=== PATIENT | male | born 1990 | race Caucasian/White ===

== ENCOUNTER 2019-03-16 09:48 | Inpatient (IN) | payer OTHER ==
[2019-03-16 10:21] VITALS: BMI 23.3
--- NOTE | 2019-03-16 12:03 | HP ---
COWS - Scale Resting Pulse: 1= [place] 81-100 Sweatin= Chills/Flushing Restless Observation: 1= Difficult to Sit Still Pupil Size: 0= Normal to Room Light Bone or Joint Aches: 1= Mild Discomfort Runny Nose/ Eye Tearin= Runny Nose/Eyes GI Upset > 30mins: 2= Nausea/Diarrhea Tremor Observation: 2= Slight Tremor Visible Yawning Observation: 0= None Anxiety or Irritability: 2=Irritable/Anxious Goose Flesh Skin: 0=Smooth Skin COWS Score: 12 CIWA Score - Admission Criteria OASAS Guidelines: Admission for Medically Managed Detox: Requires at least one of the followin. CIWA greater than 12 2. Seizures within the past 24 hours 3. Delirium tremens within the past 24 hours 4. Hallucinations within the past 24 hours 5. Acute intervention needed for co occurring medical disorder 6. Acute intervention needed for co occurring psychiatric disorder 7. Severe withdrawal that cannot be handled at a lower level of care (continued vomiting, continued diarrhea, abnormal vital signs) requiring intravenous medication and/or fluids 8. Admission ROS [facility] Chief Complaint: Detox for Heroin Allergies/Adverse Reactions: Allergies Allergy/AdvReac Type Severity Reaction Status Date / Time No Known Allergies Allergy Verified 03/16/19 10:16 History of Present Illness: 28 year old male with a past medical history of renal stones (last 3 years ago) presents for detox from heroin use. Has never been to detox in the past. Has outpatient rehab set up already [facility] in the [place]. Only associated symptom is tarry/red stool with blood clots happens once every other month, was supposed to see a GI but has not yet. No family history of colon CA. No pain with bowel movements. Heroin: 5 bags/day, last used this morning, snorts - never injected; never had a seizure. 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 Loss EENT: reports: Nose Congestion Respiratory: reports: Productive cough (White phlegm) Cardiac: reports: Lightheadedness, Palpitations GI: reports: Nausea, Tarry Stools : reports: No Symptoms Reported Musculoskeletal: reports: Back Pain Integumentary: reports: Rash Neuro: reports: Dizziness Psychiatric: reports: Judgement Intact, Mood/Affect Appropiate, Orientated x3, Depressed Patient History - Smoking Cessation Smoking history: Current every day smoker Have you smoked in the past 12 months: Yes Aproximately how many cigarettes per day: 20 Initiated information on smoking cessation: Yes 'Breaking Loose' booklet given: 03/16/19 - Substances abused Heroin Substance route: Inhalation Frequency: Daily Amount used: 5bags Age of first use: 27 Date of last use: 03/16/19 Admission Physical Exam [facility] - Vital Signs Vital Signs: Vital Signs - 24 hr 03/16/19 03/16/19 10:16 10:31 Temperature 97.1 F L 97.1 F L Pulse Rate 86 86 Respiratory 18 18 Rate Blood Pressure 120/83 120/83 Cleared for Admission [facility] - Detox or Rehab [facility] Level of Care: Medically Supervised Detox Regimen/Protocol: Methadone Claeared for Rehab Admission: No Breathalyzer - Breathalyzer Breathalyzer: 0 Urine Drug Screen - Test Device Lot number: [id number] Expiration date: 11/11/20 - Control Is test valid?: Yes - Results Drug screen NEGATIVE: No Urine drug screen results: THC-Marijuana, FEN-Fentanyl, MOP-Opiates, OXY- Oxycodone Inpatient Rehab Admission - Rehab Decision to Admit Inpatient rehab admission?: No
[2019-03-16] MEDS ORDERED: MAG HYDROX/AL HYDROX/SIMETH 30 ML UNIT-DOSE CUP PO PRN (12:14)
[2019-03-16] MEDS ORDERED: MAGNESIUM CITRATE 300 ML BOTTLE PO PRN (12:14)
[2019-03-16] MEDS ORDERED: MAGNESIUM HYDROX 2400MG/30ML ORAL SUSPENSION 30 ML CUP PO PRN (12:14)
[2019-03-16] MEDS ORDERED: MENTHOL/PHENOL 1 EACH UD MM PRN (12:14)
[2019-03-16] MEDS ORDERED: BISMUTH SUBSALICYLATE 262 MG/15 ML BTL PO PRN (12:14)
[2019-03-16] MEDS ORDERED: ACETAMINOPHEN 325 MG TABLET (FP) PO PRN ×2 (12:14)
[2019-03-16] MEDS ORDERED: METHADONE HCL 10 MG TABLET (FOR DETOX USE ONLY) PO ONE (13:00)
--- NOTE | 2019-03-16 13:17 | PN ---
Teaching Attending Note Name of Resident: Jose Kern ATTENDING PHYSICIAN STATEMENT I saw and evaluated the patient. I reviewed the resident's note and discussed the case with the resident. I agree with the resident's findings and plan as documented. SUBJECTIVE: 28 y.o. male here for opiate use , reports 4-5 bags via inhalation , denies ivdu , denies prior detox , current symptoms as above pmhx : denies denies legal issues OBJECTIVE: wnwd Vital Signs - 24 hr 03/16/19 03/16/19 10:16 10:31 Temperature 97.1 F L 97.1 F L Pulse Rate 86 86 Respiratory 18 18 Rate Blood Pressure 120/83 120/83 ASSESSMENT AND PLAN: Opioid dependence - Methadone protocol.
[2019-03-16] MEDS: NICOTINE 21 MG/24 HOURS TOPICAL PATCH TD SCH (13:33)
[2019-03-16] MEDS: NICOTINE POLACRILEX 2 MG GUM BUC PRN ×2 (14:51→21:46)
[2019-03-16] MEDS: hydrOXYzine PAMOATE 25 MG CAPSULE (FP) PO PRN ×2 (14:55→23:59)
[2019-03-16] MEDS: IBUPROFEN 400 MG TABLET (FP) PO PRN (14:58)
[2019-03-16] MEDS: cloNIDine HCL 0.1 MG TABLET PO PRN (16:15)
--- NOTE | 2019-03-16 19:53 | PN ---
[facility] Progress Note Note: Vital Signs Temperature 97.7 F 03/16/19 18:05 Pulse Rate 84 03/16/19 18:05 Respiratory Rate 18 03/16/19 18:05 Blood Pressure 144/90 03/16/19 18:05 O2 Sat by Pulse Oximetry (%) c/o of withdrawal sx, patient reported to RN on duty he also uses alcohol, 2 x six pack per day. valium PRN added to regimen increase fluids continue to monitor
[2019-03-16] MEDS: THIAMINE HCL 100 MG TABLET (FP) PO SCH (21:13)
[2019-03-16] MEDS: MELATONIN 5 MG TABLETS PO PRN (21:13)
[2019-03-16] MEDS: diazePAM 5 MG TABLET PO PRN (21:13)
[2019-03-16] MEDS: METHOCARBAMOL 500 MG TABLET PO PRN (23:59)
[2019-03-17] MEDS: cloNIDine HCL 0.1 MG TABLET PO PRN ×2 (00:38→17:00)
[2019-03-17] MEDS: diazePAM 5 MG TABLET PO PRN ×4 (01:32→16:58)
[2019-03-17] MEDS: NICOTINE POLACRILEX 2 MG GUM BUC PRN ×3 (06:27→19:13)
[2019-03-17] MEDS: METHOCARBAMOL 500 MG TABLET PO PRN (06:27)
[2019-03-17] MEDS ORDERED: METHADONE HCL 10 MG TABLET (FOR DETOX USE ONLY) PO ONE (09:12)
[2019-03-17] MEDS ORDERED: P-EPHED 60MG/TRIPROLIDI 2.5MG TABLET PO PRN (09:16)
[2019-03-17] MEDS ORDERED: METHADONE HCL 5 MG TABLET (FOR DETOX USE ONLY) ONE (09:24)
[2019-03-17] MEDS ORDERED: METHADONE HCL 10 MG TABLET (FOR DETOX USE ONLY) ONE (09:24)
[2019-03-17] MEDS: PRENATAL VITAMINS W/ FOLIC ACID TABLET (FP) PO SCH (09:25)
[2019-03-17] MEDS: NICOTINE 21 MG/24 HOURS TOPICAL PATCH TD SCH (09:26)
[2019-03-17] MEDS ORDERED: METHADONE (DETOX) 20 MG, METHADONE (DETOX) 5 MG PO ONE (09:30)
--- NOTE | 2019-03-17 09:47 | PN ---
[facility] COWS - Scale Resting Pulse: 0= [place] 80 or Below Sweatin= Chills/Flushing Restless Observation: 1= Difficult to Sit Still Pupil Size: 0= Normal to Room Light Bone or Joint Aches: 1= Mild Discomfort Runny Nose/ Eye Tearin= Runny Nose/Eyes GI Upset > 30mins: 2= Nausea/Diarrhea Tremor Observation of Outstretched Hands: 2= Slight Tremor Visible Yawning Observation: 2= >3x During Session Anxiety or Irritability: 2=Irritable/Anxious Goose Flesh Skin: 0=Smooth Skin COWS Score: 13 BHS Progress Note (SOAP) Subjective: shakes sweats irritable body aches interrupted sleep bones hurt insomnia I used upto a bundle or two a day. I am sick Objective: 03/17/19 10:12 Vital Signs Temperature 97.5 F L 03/17/19 07:36 Pulse Rate 61 03/17/19 07:36 Respiratory Rate 18 03/17/19 07:36 Blood Pressure 150/82 03/17/19 07:36 O2 Sat by Pulse Oximetry (%) labs pending aaox3 ambulating no acute distress Assessment: 03/17/19 10:14 withdrawals noted Plan: pt was placed on a severe methadone detox regimen pt was advised of all the ancillary medication ordered increase fluids
[2019-03-17] MEDS ORDERED: METHADONE HCL 5 MG TABLET (FOR DETOX USE ONLY) PO ONE (10:00)
[2019-03-17 10:39] LABS: HEMATOCRIT 44.9 % (35.4-49); HEMOGLOBIN 15.6 GM/dL (11.7-16.9); MCH 30.5 pg (25.7-33.7); MCHC 34.7 g/dl (32.0-35.9); MEAN CELL VOLUME 87.8 fl (80-96); MEAN PLT VOLUME 8.4 fl (7.5-11.1); PLATELET COUNT 303 K/MM3 (134-434); RBC 5.12 M/mm3 (4.00-5.60); RDW 13.2 % (11.9-15.9); WHITE BLOOD COUNT 9.2 K/mm3 (4.0-10.0)
[2019-03-17 10:44] LABS: ALBUMIN 4.6 g/dl (3.4-5.0); BILIRUBIN,TOTAL 0.6 mg/dL (0.2-1); BLOOD UREA NITROGEN 7.8 mg/dL (7-18); CALCIUM 9.6 mg/dL (8.5-10.1)
[2019-03-17] MEDS: PANTOPRAZOLE 40 MG TABLET (FP) PO SCH (11:55)
[2019-03-17] MEDS ORDERED: FLU VACCINE QUAD 60 MCG/0.5 ML (MDV 19-20) IM ONE (12:00)
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
[2019-03-17] MEDS: hydrOXYzine PAMOATE 50 MG CAPSULE (FP) PO PRN (19:13)
[2019-03-17] MEDS: MIRTAZAPINE 15 MG TABLET (FP) PO SCH (22:17)
[2019-03-17] MEDS: THIAMINE HCL 100 MG TABLET (FP) PO SCH (22:17)
[2019-03-18] MEDS: diazePAM 5 MG TABLET PO PRN ×4 (05:43→22:21)
[2019-03-18] MEDS ORDERED: METHADONE HCL 5 MG TABLET (FOR DETOX USE ONLY) ONE (09:04)
[2019-03-18] MEDS ORDERED: METHADONE HCL 10 MG TABLET (FOR DETOX USE ONLY) ONE (09:04)
[2019-03-18] MEDS ORDERED: METHADONE HCL 10 MG TABLET (FOR DETOX USE ONLY) PO ONE (10:00)
[2019-03-18] MEDS ORDERED: METHADONE (DETOX) 20 MG, METHADONE (DETOX) 5 MG PO ONE (10:00)
[2019-03-18] MEDS: PRENATAL VITAMINS W/ FOLIC ACID TABLET (FP) PO SCH (10:10)
[2019-03-18] MEDS: PANTOPRAZOLE 40 MG TABLET (FP) PO SCH (10:10)
[2019-03-18] MEDS: NICOTINE 21 MG/24 HOURS TOPICAL PATCH TD SCH (10:11)
[2019-03-18] MEDS: IBUPROFEN 400 MG TABLET (FP) PO PRN (12:11)
[2019-03-18] MEDS: hydrOXYzine PAMOATE 50 MG CAPSULE (FP) PO PRN ×2 (12:12→19:18)
[2019-03-18] MEDS: METHOCARBAMOL 500 MG TABLET PO PRN (13:26)
--- NOTE | 2019-03-18 13:27 | PN ---
[facility] COWS - Scale Resting Pulse: 1= [place] 81-100 Sweatin= Chills/Flushing Restless Observation: 1= Difficult to Sit Still Pupil Size: 0= Normal to Room Light Bone or Joint Aches: 1= Mild Discomfort Runny Nose/ Eye Tearin= None GI Upset > 30mins: 0= None Tremor Observation of Outstretched Hands: 0= None Yawning Observation: 2= >3x During Session Anxiety or Irritability: 2=Irritable/Anxious Goose Flesh Skin: 0=Smooth Skin COWS Score: 8 BHS Progress Note (SOAP) Subjective: c/o anxiety, irritability, interrupted sleep, and sweats. Objective: 03/18/19 13:26 Vital Signs 03/18/19 03/18/19 06:00 09:46 Temperature 97.7 F 96.4 F L Pulse Rate 85 82 Respiratory 18 18 Rate Blood Pressure 124/94 135/71 Lab Results WBC 9.2 K/mm3 (4.0-10.0) 03/17/19 08:00 RBC 5.12 M/mm3 (4.00-5.60) 03/17/19 08:00 Hgb 15.6 GM/dL (11.7-16.9) 03/17/19 08:00 Hct 44.9 % (35.4-49) 03/17/19 08:00 MCV 87.8 fl (80-96) 03/17/19 08:00 MCHC 34.7 g/dl (32.0-35.9) 03/17/19 08:00 RDW 13.2 % (11.9-15.9) 03/17/19 08:00 Plt Count 303 K/MM3 (134-434) 03/17/19 08:00 Sodium 140 mmol/L (136-145) 03/17/19 08:00 Potassium 4.0 mmol/L (3.5-5.1) 03/17/19 08:00 Chloride 103 mmol/L (98-107) 03/17/19 08:00 Carbon Dioxide 29 mmol/L (21-32) 03/17/19 08:00 Anion Gap 8 MMOL/L (8-16) 03/17/19 08:00 BUN 7.8 mg/dL (7-18) 03/17/19 08:00 Creatinine 1.0 mg/dL (0.55-1.3) 03/17/19 08:00 Random Glucose 86 mg/dL (74-106) 03/17/19 08:00 Calcium 9.6 mg/dL (8.5-10.1) 03/17/19 08:00 Labs noted. Assessment: 03/18/19 13:26 AOX3, in no acute respiratory distress. Full ROM, ambulating in the unit. Withdrawal symptoms. Plan: continue detox.
[2019-03-18] MEDS: NICOTINE POLACRILEX 2 MG GUM BUC PRN (19:18)
[2019-03-18] MEDS ORDERED: BENZOCAINE 20 % GEL TUBE MM PRN (20:19)
[2019-03-18] MEDS: MIRTAZAPINE 15 MG TABLET (FP) PO SCH (22:19)
[2019-03-18] MEDS: THIAMINE HCL 100 MG TABLET (FP) PO SCH (22:19)
[2019-03-18] MEDS: MELATONIN 5 MG TABLETS PO PRN (22:20)
[2019-03-19] MEDS ORDERED: METHADONE HCL 5 MG TABLET (FOR DETOX USE ONLY) PO ONE (06:00)
[2019-03-19] MEDS ORDERED: METHADONE HCL 10 MG TABLET (FOR DETOX USE ONLY) PO ONE (10:00)
[2019-03-19] MEDS: NICOTINE 21 MG/24 HOURS TOPICAL PATCH TD SCH (10:07)
[2019-03-19] MEDS: PRENATAL VITAMINS W/ FOLIC ACID TABLET (FP) PO SCH (10:07)
[2019-03-19] MEDS: PANTOPRAZOLE 40 MG TABLET (FP) PO SCH (10:07)
[2019-03-19] MEDS: METHOCARBAMOL 500 MG TABLET PO PRN ×2 (10:10→22:04)
[2019-03-19] MEDS: diazePAM 5 MG TABLET PO PRN ×2 (10:10→15:42)
--- NOTE | 2019-03-19 12:10 | PN ---
[facility] Progress Note Note: Patient is scheduled for discharge tomorrow. Script for 30 dasys supply of Remeron 7.5 mg/hs will be electronically transmitted to [facility] at [address] [place] [id number]
--- NOTE | 2019-03-19 16:45 | PN ---
[facility] COWS - Scale Resting Pulse: 0= [place] 80 or Below Sweatin= No chills or Flushing Restless Observation: 3= Extraneous Movement Pupil Size: 0= Normal to Room Light Bone or Joint Aches: 0= None Runny Nose/ Eye Tearin= Nasal Congestion GI Upset > 30mins: 0= None Tremor Observation of Outstretched Hands: 1= Tremor [place], Not Seen Yawning Observation: 0= None Anxiety or Irritability: 2=Irritable/Anxious Goose Flesh Skin: 0=Smooth Skin COWS Score: 7 S Progress Note (SOAP) Subjective: tooth abscess Objective: 03/19/19 16:43 a & O x 3 not in distress ambulating steadily on unit Assessment: 03/19/19 16:43 withdrawal sx Plan: continue detox Motrin/oral gel for tooth ache/abscess referred to dentist upon discharge tomorrow for d/c in a.m
[2019-03-19] MEDS: hydrOXYzine PAMOATE 50 MG CAPSULE (FP) PO PRN (17:53)
[2019-03-19] MEDS: IBUPROFEN 400 MG TABLET (FP) PO PRN (17:53)
[2019-03-19] MEDS: THIAMINE HCL 100 MG TABLET (FP) PO SCH (22:03)
[2019-03-19] MEDS: MIRTAZAPINE 15 MG TABLET (FP) PO SCH (22:03)
[2019-03-19] MEDS: MELATONIN 5 MG TABLETS PO PRN (22:06)
[2019-03-19] MEDS: NICOTINE POLACRILEX 2 MG GUM BUC PRN (22:06)
[2019-03-20] MEDS: IBUPROFEN 400 MG TABLET (FP) PO PRN (06:11)
[2019-03-20] MEDS: METHOCARBAMOL 500 MG TABLET PO PRN (06:12)
[2019-03-20] MEDS: hydrOXYzine PAMOATE 25 MG CAPSULE (FP) PO PRN (06:12)
[2019-03-20] MEDS ORDERED: METHADONE HCL 10 MG TABLET (FOR DETOX USE ONLY) PO ONE (09:00)
[2019-03-20 09:11] VITALS: BP 154/82; PULSE 93; TEMP 97.5
--- NOTE | 2019-03-20 09:17 | DS ---
[facility] Detox Discharge Summary Admission Date: 03/16/19 Discharge Date: 03/20/19 - History Present History: Cannabis Dependence, Opioid Dependence - Physical Exam Results Vital Signs: Vital Signs Temperature 97.5 F L 03/20/19 09:11 Pulse Rate 93 H 03/20/19 09:11 Respiratory Rate 18 03/20/19 09:11 Blood Pressure 154/82 03/20/19 09:11 O2 Sat by Pulse Oximetry (%) Pertinent Admission Physical Exam Findings: pt arrived in withdrawals Laboratory Tests 03/17/19 03/17/19 03/17/19 08:00 08:00 08:00 WBC 9.2 RBC 5.12 Hgb 15.6 Hct 44.9 MCV 87.8 MCH 30.5 MCHC 34.7 RDW 13.2 Plt Count 303 MPV 8.4 Sodium 140 Potassium 4.0 Chloride 103 Carbon Dioxide 29 Anion Gap 8 BUN 7.8 Creatinine 1.0 Est GFR (CKD-EPI)AfAm 117.36 Est GFR (CKD-EPI)NonAf 101.26 Random Glucose 86 Calcium 9.6 Total Bilirubin 0.6 AST 14 L ALT 28 Alkaline Phosphatase 78 Total Protein 8.0 Albumin 4.6 RPR Titer Nonreactive today pt is aaox3 ambulating no acute distress no s/s of withdrawals - Treatment Hospital Course: Detox Protocol Followed, Detoxed Safely, Responded well, Discharged Condition Good, Rehab Referral Accepted Patient has Accepted a Rehab Referral to: pt declined rehab; referral provided - Medication Discharge Medications: Ambulatory Orders Mirtazapine [Remeron -] 7.5 mg PO HS #14 tablet 03/19/19 - Diagnosis (1) Cannabis dependence Current Visit: Yes Status: Chronic (2) Opiate dependence Current Visit: Yes Status: Acute Qualifiers: Substance use status: uncomplicated Qualified Code(s): F11.20 - Opioid dependence, uncomplicated (3) Substance induced mood disorder Current Visit: Yes Status: Acute (4) Substance-induced sleep disorder Current Visit: Yes Status: Acute - AMA Did Patient Leave Against Medical Advice: No
[2019-03-20] MEDS: PRENATAL VITAMINS W/ FOLIC ACID TABLET (FP) PO SCH (09:22)
[2019-03-20] MEDS: PANTOPRAZOLE 40 MG TABLET (FP) PO SCH (09:24)
[2019-03-20] MEDS: NICOTINE 21 MG/24 HOURS TOPICAL PATCH TD SCH (09:24)
[2019-03-20] MEDS ORDERED: METHADONE (DETOX) 10 MG, METHADONE (DETOX) 5 MG PO ONE (10:00)
[2019-03-21] MEDS ORDERED: METHADONE HCL 10 MG TABLET (FOR DETOX USE ONLY) PO ONE (10:00)
[2019-03-22] MEDS ORDERED: METHADONE HCL 5 MG TABLET (FOR DETOX USE ONLY) PO ONE (06:00)
== END 2019-03-20 09:30 | disposition home or self-care (01) | DRG 775 ==
LOC: YASAS 09:48 → Y6N 12:30
PROVIDERS: ADMIT Surgery; ATTEND Surgery
PROC: HZ2ZZZZ Detoxification Services for Substance Abuse Treatment (ICD-10-PCS; principal; 2019-03-16)
DX: F10.230 Alcohol dependence with withdrawal, uncomplicated (principal); F12.20 Cannabis dependence, uncomplicated; F17.210 Nicotine dependence, cigarettes, uncomplicated; F19.24 Other psychoactive substance dependence with psychoactive substance-induced mood disorder; F19.282 Other psychoactive substance dependence with psychoactive substance-induced sleep disorder; K04.7 Periapical abscess without sinus; Z62.810 Personal history of physical and sexual abuse in childhood; Z87.442 Personal history of urinary calculi
CPT/HCPCS: 36415; 80053; 85027; 86593; J0735; Q2036

== ENCOUNTER 2019-03-31 13:00 | Inpatient (IN) | payer OTHER ==
[2019-03-31 14:22] VITALS: BMI 24.3
[2019-03-31] MEDS ORDERED: MAG HYDROX/AL HYDROX/SIMETH 30 ML UNIT-DOSE CUP PO PRN (15:19)
[2019-03-31] MEDS ORDERED: MELATONIN 5 MG TABLETS PO PRN (15:19)
[2019-03-31] MEDS ORDERED: ACETAMINOPHEN 325 MG TABLET (FP) PO PRN ×2 (15:19)
[2019-03-31] MEDS ORDERED: BISMUTH SUBSALICYLATE 524 MG/30 ML UD PO PRN (15:19)
[2019-03-31] MEDS ORDERED: hydrOXYzine PAMOATE 25 MG CAPSULE (FP) PO PRN (15:19)
[2019-03-31] MEDS ORDERED: MENTHOL/PHENOL 1 EACH UD MM PRN (15:19)
[2019-03-31] MEDS ORDERED: MAGNESIUM CITRATE 300 ML BOTTLE PO PRN (15:19)
[2019-03-31] MEDS ORDERED: MAGNESIUM HYDROX 2400MG/30ML ORAL SUSPENSION 30 ML CUP PO PRN (15:19)
[2019-03-31] MEDS ORDERED: ONDANSETRON *ODT* 4 MG TABLET SL PRN (15:19)
[2019-03-31] MEDS ORDERED: NALOXONE HCL 0.4 MG/ML VIAL IM PRN (15:21)
[2019-03-31] MEDS ORDERED: METHADONE HCL 10 MG TABLET (FOR DETOX USE ONLY) PO ONE (15:21)
[2019-03-31] MEDS ORDERED: chlordiazePOXIDE HCL 10 MG CAPSULE PO PRN (15:21)
[2019-03-31] MEDS ORDERED: chlordiazePOXIDE HCL 25 MG CAPSULE PO ONE (15:21)
[2019-03-31] MEDS ORDERED: NICOTINE POLACRILEX 2 MG GUM BUC PRN (15:23)
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
[2019-03-31] MEDS: THIAMINE HCL 100 MG TABLET (FP) PO SCH (21:11)
[2019-03-31] MEDS: chlordiazePOXIDE HCL 25 MG CAPSULE PO SCH (21:11)
[2019-03-31] MEDS: MIRTAZAPINE 15 MG TABLET (FP) PO SCH (21:11)
--- NOTE | 2019-03-31 22:18 | EKG ---
Test Reason : Blood Pressure : / mmHG Vent. Rate : 085 BPM Atrial Rate : 085 BPM P-R Int : 142 ms QRS Dur : 090 ms QT Int : 362 ms P-R-T Axes : 083 068 049 degrees QTc Int : 430 ms NORMAL SINUS RHYTHM NORMAL ECG NO PREVIOUS ECGS AVAILABLE Confirmed by MD SHERLEY, SANDRA ([id number]) on 03/31/2019 10:18:18 PM Referred By: Confirmed By:SANDRA LEPE MD
[2019-04-01] MEDS: chlordiazePOXIDE HCL 25 MG CAPSULE PO SCH ×3 (05:39→22:15)
[2019-04-01] MEDS ORDERED: METHADONE HCL 5 MG TABLET (FOR DETOX USE ONLY) PO ONE (10:00)
[2019-04-01] MEDS: hydrOXYzine PAMOATE 25 MG CAPSULE (FP) PO PRN ×2 (10:05→16:51)
[2019-04-01] MEDS: PRENATAL VITAMINS W/ FOLIC ACID TABLET (FP) PO SCH (10:09)
[2019-04-01 10:15] LABS: ALBUMIN 4.1 g/dl (3.4-5.0); BILIRUBIN,TOTAL 0.7 mg/dL (0.2-1); BLOOD UREA NITROGEN 10.1 mg/dL (7-18); CALCIUM 9.4 mg/dL (8.5-10.1); POTASSIUM 4.4 mmol/L (3.5-5.1); TOT PROT 7.5 g/dl (6.4-8.2)
[2019-04-01 10:37] LABS: HEMATOCRIT 42.4 % (35.4-49); HEMOGLOBIN 14.5 GM/dL (11.7-16.9); MCH 30.3 pg (25.7-33.7); MCHC 34.1 g/dl (32.0-35.9); MEAN CELL VOLUME 88.6 fl (80-96); MEAN PLT VOLUME 8.1 fl (7.5-11.1); PLATELET COUNT 296 K/MM3 (134-434); RBC 4.78 M/mm3 (4.00-5.60); RDW 13.4 % (11.9-15.9); WHITE BLOOD COUNT 9.1 K/mm3 (4.0-10.0)
[2019-04-01] MEDS: NICOTINE 21 MG/24 HOURS TOPICAL PATCH TD SCH (10:40)
--- NOTE | 2019-04-01 12:23 | PN ---
[facility] CIWA - CIWA Score Nausea/Vomitin-No Nausea/No Vomiting Muscle Tremors: None Anxiety: 3 Agitation: 2 Paroxysmal Sweats: 3 Orientation: 0-Oriented Tacttile Disturbances: 0-None Auditory Disturbances: 0-None Visual Disturbances: 0-None Headache: 2-Mild CIWA-Ar Total Score: 10 S COWS - Scale Resting Pulse: 0= [place] 80 or Below Sweatin= Beads of Sweat on Face Restless Observation: 1= Difficult to Sit Still Pupil Size: 0= Normal to Room Light Bone or Joint Aches: 2= Severe Diffuse Aches Runny Nose/ Eye Tearin= None GI Upset > 30mins: 0= None Tremor Observation of Outstretched Hands: 0= None Yawning Observation: 1= 1-2x During Session Anxiety or Irritability: 2=Irritable/Anxious Goose Flesh Skin: 0=Smooth Skin COWS Score: 9 [facility] Progress Note (SOAP) Subjective: c/o anxiety, irritability, muscle aches, sweats, and cough. Objective: 04/01/19 12:22 Vital Signs 04/01/19 04/01/19 06:00 09:42 Temperature 97.2 F L 97.3 F L Pulse Rate 69 71 Respiratory 18 16 Rate Blood Pressure 112/81 147/81 Lab Results WBC 9.1 K/mm3 (4.0-10.0) 04/01/19 08:00 RBC 4.78 M/mm3 (4.00-5.60) 04/01/19 08:00 Hgb 14.5 GM/dL (11.7-16.9) 04/01/19 08:00 Hct 42.4 % (35.4-49) 04/01/19 08:00 MCV 88.6 fl (80-96) 04/01/19 08:00 MCHC 34.1 g/dl (32.0-35.9) 04/01/19 08:00 RDW 13.4 % (11.9-15.9) 04/01/19 08:00 Plt Count 296 K/MM3 (134-434) 04/01/19 08:00 Sodium 140 mmol/L (136-145) 04/01/19 08:00 Potassium 4.4 mmol/L (3.5-5.1) 04/01/19 08:00 Chloride 103 mmol/L (98-107) 04/01/19 08:00 Carbon Dioxide 31 mmol/L (21-32) 04/01/19 08:00 Anion Gap 6 MMOL/L (8-16) L 04/01/19 08:00 BUN 10.1 mg/dL (7-18) 04/01/19 08:00 Creatinine 1.0 mg/dL (0.55-1.3) 04/01/19 08:00 Random Glucose 85 mg/dL (74-106) 04/01/19 08:00 Calcium 9.4 mg/dL (8.5-10.1) 04/01/19 08:00 Labs noted. Assessment: 04/01/19 12:22 AOX3, in no acute respiratory distress. Full ROM, ambulating in the unit. Withdrawal symptoms. cough. 04/01/19 12:23 Plan: continue detox. Robitussin prn for cough.
[2019-04-01] MEDS: METHOCARBAMOL 500 MG TABLET PO PRN ×2 (12:45→22:17)
[2019-04-01] MEDS: THIAMINE HCL 100 MG TABLET (FP) PO SCH (22:15)
[2019-04-01] MEDS: MIRTAZAPINE 15 MG TABLET (FP) PO SCH (22:15)
[2019-04-02] MEDS: chlordiazePOXIDE 5 MG CAPSULE PO SCH ×3 (06:22→21:57)
[2019-04-02] MEDS: hydrOXYzine PAMOATE 25 MG CAPSULE (FP) PO PRN ×2 (07:49→17:21)
[2019-04-02] MEDS: IBUPROFEN 400 MG TABLET (FP) PO PRN ×2 (07:49→17:21)
[2019-04-02] MEDS: NICOTINE 21 MG/24 HOURS TOPICAL PATCH TD SCH (09:17)
[2019-04-02] MEDS: PRENATAL VITAMINS W/ FOLIC ACID TABLET (FP) PO SCH (09:17)
[2019-04-02] MEDS: guaiFENesin 200 MG/10 ML 10 ML UNIT-DOSE CUPS PO PRN ×2 (09:20→22:00)
[2019-04-02] MEDS ORDERED: METHADONE HCL 10 MG TABLET (FOR DETOX USE ONLY) PO ONE (10:00)
[2019-04-02] MEDS: METHOCARBAMOL 500 MG TABLET PO PRN ×2 (14:15→22:00)
--- NOTE | 2019-04-02 14:49 | PN ---
S Progress Note Note: Patient is scheduled for discharge tomorrow. Script for 30 days supply of Remeron 15 mg/hs will be electronically transmitted to [facility] at [address], [place] [address]
[2019-04-02] MEDS ORDERED: cloNIDine HCL 0.1 MG TABLET PO PRN (15:31)
--- NOTE | 2019-04-02 15:32 | PN ---
[facility] CIWA - CIWA Score Nausea/Vomitin-Mild Nausea/No Vomiting Muscle Tremors: 2 Anxiety: 1-Mildly Anxious Agitation: 1-Slight > Activity Paroxysmal Sweats: 2 Orientation: 0-Oriented Tacttile Disturbances: 0-None Auditory Disturbances: 0-None Visual Disturbances: 0-None Headache: 0-None Present CIWA-Ar Total Score: 7 [facility] COWS - Scale Resting Pulse: 1= [place] 81-100 Sweatin= Chills/Flushing Restless Observation: 0= Sits Still Pupil Size: 0= Normal to Room Light Bone or Joint Aches: 1= Mild Discomfort Runny Nose/ Eye Tearin= None GI Upset > 30mins: 1= Stomach Cramp Tremor Observation of Outstretched Hands: 2= Slight Tremor Visible Yawning Observation: 0= None Anxiety or Irritability: 1=Feels Anxious/Irritable Goose Flesh Skin: 0=Smooth Skin COWS Score: 7 S Progress Note (SOAP) Subjective: Body ache, chills, nausea; patient is anxious. Patient requesting for his librium to be adjusted so that he can leave tomorrow because his methadone ends tomorrow and he feels ready to leave. Patient stated the librium only makes him sleep and he doesn't really need it. Patient refused inpatient rehab. Objective: 04/02/19 15:30 Last Vital Signs Temp Pulse Resp BP Pulse Ox 98.6 F 84 18 141/89 04/02/19 14:35 04/02/19 14:35 04/02/19 14:35 04/02/19 14:35 Elevated b/p: denies htn, not on medication Laboratory Tests 04/01/19 04/01/19 04/01/19 08:00 08:00 08:00 WBC 9.1 RBC 4.78 Hgb 14.5 Hct 42.4 MCV 88.6 MCH 30.3 MCHC 34.1 RDW 13.4 Plt Count 296 MPV 8.1 Sodium 140 Potassium 4.4 Chloride 103 Carbon Dioxide 31 Anion Gap 6 L BUN 10.1 Creatinine 1.0 Est GFR (CKD-EPI)AfAm 117.36 Est GFR (CKD-EPI)NonAf 101.26 Random Glucose 85 Calcium 9.4 Total Bilirubin 0.7 AST 12 L ALT 53 Alkaline Phosphatase 66 Total Protein 7.5 Albumin 4.1 RPR Titer Nonreactive Labs reviewed Assessment: 04/02/19 15:32 Withdrawal sxs Noted with elevated b/p Plan: Continue detox Encouraged PO water intake Scheduled for discharge tomorrow as per patient's request (librium protocol adjusted as per patient's request in order to accommodate tomorrow's discharge date) Elevated b/p: most likely due to withdrawal or anxiety, start clonidine 0.1mg PO q8h prn if b/p > 140/90
[2019-04-02] MEDS: THIAMINE HCL 100 MG TABLET (FP) PO SCH (21:57)
[2019-04-02] MEDS: MIRTAZAPINE 15 MG TABLET (FP) PO SCH (21:57)
[2019-04-03] MEDS ORDERED: chlordiazePOXIDE HCL 10 MG CAPSULE PO PRN
[2019-04-03] MEDS ORDERED: chlordiazePOXIDE HCL 10 MG CAPSULE PO ONE (05:00)
[2019-04-03] MEDS ORDERED: chlordiazePOXIDE HCL 10 MG CAPSULE PO SCH (05:00)
[2019-04-03] MEDS: METHOCARBAMOL 500 MG TABLET PO PRN (05:33)
[2019-04-03] MEDS: IBUPROFEN 400 MG TABLET (FP) PO PRN (05:34)
[2019-04-03] MEDS ORDERED: METHADONE HCL 5 MG TABLET (FOR DETOX USE ONLY) PO ONE (06:00)
[2019-04-03 07:07] VITALS: BP 119/72; PULSE 72; TEMP 98.2
--- NOTE | 2019-04-03 09:49 | DS ---
[facility] Detox Discharge Summary Admission Date: 03/31/19 Discharge Date: 04/03/19 - History Present History: Alcohol Dependence, Cannabis Dependence, Opioid Dependence - Physical Exam Results Vital Signs: Vital Signs Temperature 98.2 F 04/03/19 07:06 Pulse Rate 72 04/03/19 07:06 Respiratory Rate 18 04/03/19 07:06 Blood Pressure 119/72 04/03/19 07:06 O2 Sat by Pulse Oximetry (%) Pertinent Admission Physical Exam Findings: pt arrived in withdrawals Vital Signs Temperature 98.2 F 04/03/19 07:06 Pulse Rate 72 04/03/19 07:06 Respiratory Rate 18 04/03/19 07:06 Blood Pressure 119/72 04/03/19 07:06 O2 Sat by Pulse Oximetry (%) Laboratory Tests 04/01/19 04/01/19 04/01/19 08:00 08:00 08:00 WBC 9.1 RBC 4.78 Hgb 14.5 Hct 42.4 MCV 88.6 MCH 30.3 MCHC 34.1 RDW 13.4 Plt Count 296 MPV 8.1 Sodium 140 Potassium 4.4 Chloride 103 Carbon Dioxide 31 Anion Gap 6 L BUN 10.1 Creatinine 1.0 Est GFR (CKD-EPI)AfAm 117.36 Est GFR (CKD-EPI)NonAf 101.26 Random Glucose 85 Calcium 9.4 Total Bilirubin 0.7 AST 12 L ALT 53 Alkaline Phosphatase 66 Total Protein 7.5 Albumin 4.1 RPR Titer Nonreactive today pt is aaox3 ambulating no acute distress no s/s of withdrawals - Treatment Hospital Course: Detox Protocol Followed, Detoxed Safely, Responded well, Discharged Condition Good, Rehab Referral Accepted Patient has Accepted a Rehab Referral to: pt declined rehab; referral provided - Medication Discharge Medications: Ambulatory Orders Mirtazapine [Remeron -] 15 mg PO HS #30 tablet 04/02/19 - Diagnosis (1) Alcohol dependence with withdrawal, uncomplicated Current Visit: Yes Status: Chronic (2) Anxiety Current Visit: Yes Status: Acute (3) Depressed affect Current Visit: Yes Status: Acute (4) Opioid dependence with withdrawal Current Visit: Yes Status: Chronic (5) Substance induced mood disorder Current Visit: Yes Status: Acute (6) Substance-induced sleep disorder Current Visit: Yes Status: Acute (7) Cannabis dependence Current Visit: Yes Status: Chronic - AMA Did Patient Leave Against Medical Advice: No
[2019-04-04] MEDS ORDERED: chlordiazePOXIDE HCL 10 MG CAPSULE PO ONE (05:00)
== END 2019-04-03 09:10 | disposition home or self-care (01) | DRG 773 ==
LOC: YASAS 13:00 → Y6N 15:33
PROVIDERS: ADMIT Allergy & Immunology; ATTEND Allergy & Immunology
PROC: HZ2ZZZZ Detoxification Services for Substance Abuse Treatment (ICD-10-PCS; principal; 2019-03-31)
DX: F11.23 Opioid dependence with withdrawal (principal); F10.230 Alcohol dependence with withdrawal, uncomplicated; F12.20 Cannabis dependence, uncomplicated; F17.210 Nicotine dependence, cigarettes, uncomplicated; F19.282 Other psychoactive substance dependence with psychoactive substance-induced sleep disorder; F19.24 Other psychoactive substance dependence with psychoactive substance-induced mood disorder; F41.9 Anxiety disorder, unspecified; R45.89 Other symptoms and signs involving emotional state; R05 Cough; R03.0 Elevated blood-pressure reading, without diagnosis of hypertension; Z91.5 Personal history of self-harm
CPT/HCPCS: 36415; 80053; 85027; 86593; 93005; 93010

== ENCOUNTER 2019-05-08 13:04 | Inpatient (IN) | payer OTHER ==
[2019-05-08 14:38] VITALS: BMI 24.0
--- NOTE | 2019-05-08 15:41 | HP ---
COWS - Scale Resting Pulse: 1= [place] 81-100 Sweatin= Chills/Flushing Restless Observation: 1= Difficult to Sit Still Pupil Size: 1= Pupils >than Normal Bone or Joint Aches: 2= Severe Diffuse Aches Runny Nose/ Eye Tearin= Runny Nose/Eyes GI Upset > 30mins: 2= Nausea/Diarrhea Tremor Observation: 2= Slight Tremor Visible Yawning Observation: 1= 1-2x During Session Anxiety or Irritability: 1=Feels Anxious/Irritable Goose Flesh Skin: 0=Smooth Skin COWS Score: 14 CIWA Score - Admission Criteria [facility]ASAS Guidelines: Admission for Medically Managed Detox: Requires at least one of the followin. CIWA greater than 12 2. Seizures within the past 24 hours 3. Delirium tremens within the past 24 hours 4. Hallucinations within the past 24 hours 5. Acute intervention needed for co occurring medical disorder 6. Acute intervention needed for co occurring psychiatric disorder 7. Severe withdrawal that cannot be handled at a lower level of care (continued vomiting, continued diarrhea, abnormal vital signs) requiring intravenous medication and/or fluids 8. Admitting History and Physical - Past Medical History Renal/: Yes: Renal Calculi Psych: Yes: Anxiety, Depression - Smoking History Smoking history: Current every day smoker Have you smoked in the past 12 months: Yes Aproximately how many cigarettes per day: 20 - Alcohol/Substance Use Hx Alcohol Use: Yes Number of Drinks Daily: 6 (BEERS) History of Substance Use: reports: Heroin Date of Last Use: 03/30/19 (1 BUNDLE) - Social History ADL: Independent History of Recent Travel: No Admission [facility] Chief Complaint: heroin and alcohol detox Allergies/Adverse Reactions: Allergies Allergy/AdvReac Type Severity Reaction Status Date / Time No Known Allergies Allergy Verified 05/08/19 14:31 History of Present Illness: 28 yo with a one year h/o of heroin use- IH, prior to that was misusing pain prescriptions. 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 Pt states tried to go to a methadone program last week and was told that since he had other substances besides heroin- he needed to come for detox. Pt states he will go to methadone/ suboxon treatment at discharge. heroin 20-25 bags/day, IH never OD'd, has narcan alcohol use- 2 6 packs/day and 1 liqour bottle- usually only takes it when using heroin- this helps him stay awake. no seizures, DT's THC 06/21/day [facility] no controlled substances - Ebola screening Have you traveled outside of the country in the last 21 days: No Have you had contact with anyone from an Ebola affected area: No Do you have a fever: No - Review of Systems Constitutional: No Symptoms Reported EENT: reports: No Symptoms Reported Respiratory: reports: No Symptoms reported Cardiac: reports: No Symptoms Reported GI: reports: No Symptoms Reported : reports: No Symptoms Reported Musculoskeletal: reports: No Symptoms Reported Integumentary: reports: No Symptoms Reported Neuro: reports: No Symptoms reported Endocrine: reports: No Symptoms Reported Hematology: reports: No Symptoms Reported Psychiatric: reports: No Sypmtoms Reported Other Systems: Reviewed and Negative Patient History - Patient Medical History Hx Anemia: No Hx Asthma: No Hx Chronic Obstructive Pulmonary Disease (COPD): No Hx Cancer: No Hx Cardiac Disorders: No Hx Congestive Heart Failure: No Hx Hypertension: No Hx Hypercholesterolemia: No Hx Pacemaker: No HX Cerebrovascular Accident: No Hx Seizures: No Hx Diabetes: No Hx Gastrointestinal Disorders: No Hx Liver Disease: No Hx Genitourinary Disorders: Yes (HX OF KIDNEY STONES) Hx Sexually Transmitted Disorders: No Hx Renal Disease (ESRD): No Hx Thyroid Disease: No Hx Human Immunodeficiency Virus (HIV): No Hx Hepatitis C: No Hx Depression: Yes Hx Suicide Attempt: Yes (Pt tried to overdose in 2013) Hx Bipolar Disorder: No Hx Schizophrenia: No - Patient Surgical History Past Surgical History: No Hx Neurologic Surgery: No Hx Cataract Extraction: No Hx Cardiac Surgery: No Hx Lung Surgery: No Hx Breast Surgery: No Hx Breast Biopsy: No Hx Abdominal Surgery: No Hx Appendectomy: No Hx Cholecystectomy: No Hx Genitourinary Surgery: No Hx Section: No Hx Orthopedic Surgery: No Anesthesia Reaction: No - PPD History Date: 04/02/19 - Smoking Cessation Smoking history: Current every day smoker Have you smoked in the past 12 months: Yes Aproximately how many cigarettes per day: 20 Hx Chewing Tobacco Use: No Initiated information on smoking cessation: Yes 'Breaking Loose' booklet given: 05/08/19 - Substance & Tx. History Hx Alcohol Use: Yes Hx Substance Use: Yes Substance Use Type: Alcohol, Heroin, Opiates - Substances abused Heroin Substance route: Inhalation Frequency: Daily Amount used: 2.5 Bundles Age of first use: 27 Date of last use: 05/08/19 Alcohol Substance route: Oral Frequency: Daily Amount used: 2*6 packs OF BEER, 2 NIPS OF HENESSEY Age of first use: 17 Date of last use: 05/06/19 Marijuana/Hashish Substance route: Smoking Frequency: Daily Amount used: 1/ Age of first use: 12 Date of last use: 05/08/19 Admission Physical Exam S - Vital Signs Vital Signs: Vital Signs - 24 hr 05/08/19 14:23 Temperature 97.7 F Pulse Rate 71 Respiratory 20 Rate Blood Pressure 125/82 - Physical General Appearance: Yes: Within Normal Limits HEENTM: Yes: Within Normal Limits Respiratory: Yes: Within Normal Limits, Lungs Clear Neck: Yes: Within Normal Limits Cardiology: Yes: Within Normal Limits Abdominal: Yes: Within Normal Limits Genitourinary: Yes: Within Normal Limits Back: Yes: Within Normal Limits Musculoskeletal: Yes: Within Normal Limits Extremities: Yes: Within Normal Limits Neurological: Yes: Within Normal Limits Integumentary: Yes: Within Normal Limits Lymphatic: Yes: Within Normal Limits - Diagnostic (1) Anxiety Current Visit: No Status: Acute (2) Alcohol dependence with withdrawal, uncomplicated Current Visit: No Status: Chronic (3) Cannabis dependence Current Visit: No Status: Chronic (4) Opioid dependence with withdrawal Current Visit: No Status: Chronic Screened but not Admitted - Documentation of Visit Screened but not Admitted: No Breathalyzer - Breathalyzer Breathalyzer: 0 Urine Drug Screen - Test Device Lot number: [id number] Expiration date: 01/11/21 - Control Is test valid?: Yes - Results Drug screen NEGATIVE: No Urine drug screen results: THC-Marijuana, FEN-Fentanyl, MOP-Opiates Inpatient Rehab Admission - Rehab Decision to Admit Inpatient rehab admission?: No
[2019-05-08] MEDS ORDERED: METHOCARBAMOL 500 MG TABLET PO PRN (15:43)
[2019-05-08] MEDS ORDERED: IBUPROFEN 400 MG TABLET (FP) PO PRN (15:43)
[2019-05-08] MEDS ORDERED: ACETAMINOPHEN 325 MG TABLET (FP) PO PRN ×2 (15:43)
[2019-05-08] MEDS ORDERED: MAGNESIUM CITRATE 300 ML BOTTLE PO PRN (15:43)
[2019-05-08] MEDS ORDERED: MENTHOL/PHENOL 1 EACH UD MM PRN (15:43)
[2019-05-08] MEDS ORDERED: hydrOXYzine PAMOATE 25 MG CAPSULE (FP) PO PRN (15:43)
[2019-05-08] MEDS ORDERED: MAG HYDROX/AL HYDROX/SIMETH 30 ML UNIT-DOSE CUP PO PRN (15:43)
[2019-05-08] MEDS ORDERED: NICOTINE POLACRILEX 2 MG GUM BUC PRN (15:43)
[2019-05-08] MEDS ORDERED: MELATONIN 5 MG TABLETS PO PRN (15:43)
[2019-05-08] MEDS ORDERED: BISMUTH SUBSALICYLATE 524 MG/30 ML UD PO PRN (15:43)
[2019-05-08] MEDS ORDERED: MAGNESIUM HYDROX 2400MG/30ML ORAL SUSPENSION 30 ML CUP PO PRN (15:43)
[2019-05-08] MEDS ORDERED: NALOXONE HCL 0.4 MG/ML VIAL IM PRN (15:43)
[2019-05-08] MEDS: LORazepam 1 MG TABLET PO PRN (16:48)
[2019-05-08] MEDS ORDERED: LORazepam 2 MG TABLET PO ONE (17:00)
[2019-05-08] MEDS ORDERED: METHADONE HCL 10 MG TABLET (FOR DETOX USE ONLY) PO ONE (17:00)
[2019-05-08] MEDS: LORazepam 2 MG TABLET PO SCH ×2 (17:16→22:18)
[2019-05-08] MEDS: cloNIDine HCL 0.1 MG TABLET PO PRN (18:38)
[2019-05-08] MEDS: THIAMINE HCL 100 MG TABLET (FP) PO SCH (22:18)
[2019-05-09] MEDS: LORazepam 2 MG TABLET PO SCH ×4 (05:50→22:06)
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
[2019-05-09] MEDS ORDERED: hydrOXYzine PAMOATE 50 MG CAPSULE (FP) PO PRN (08:50)
[2019-05-09] MEDS ORDERED: METHADONE HCL 5 MG TABLET (FOR DETOX USE ONLY) ONE (09:13)
[2019-05-09] MEDS ORDERED: METHADONE HCL 10 MG TABLET (FOR DETOX USE ONLY) ONE (09:14)
--- NOTE | 2019-05-09 09:32 | PN ---
[facility] CIWA - CIWA Score Nausea/Vomitin-Mild Nausea/No Vomiting Muscle Tremors: 2 Anxiety: 2 Agitation: 2 Paroxysmal Sweats: No Perspiration Orientation: 0-Oriented Tacttile Disturbances: 1-Very Mild Itch/Numbness Auditory Disturbances: 0-None Visual Disturbances: 0-None Headache: 2-Mild CIWA-Ar Total Score: 10 BHS COWS - Scale Resting Pulse: 2= [place] 101-120 Sweatin= No chills or Flushing Restless Observation: 1= Difficult to Sit Still Pupil Size: 1= Pupils >than Normal Bone or Joint Aches: 1= Mild Discomfort Runny Nose/ Eye Tearin= Nasal Congestion GI Upset > 30mins: 2= Nausea/Diarrhea Tremor Observation of Outstretched Hands: 2= Slight Tremor Visible Yawning Observation: 1= 1-2x During Session Anxiety or Irritability: 2=Irritable/Anxious Goose Flesh Skin: 0=Smooth Skin COWS Score: 13 [facility] Progress Note (SOAP) Subjective: alert,irritable,anxious,interrupted sleep,tremor,pain in the body and back Objective: 05/09/19 09:31 Vital Signs Temperature 97.9 F 05/09/19 09:12 Pulse Rate 105 H 05/09/19 09:12 Respiratory Rate 18 05/09/19 09:12 Blood Pressure 143/82 05/09/19 09:12 O2 Sat by Pulse Oximetry (%) labs pending Assessment: 05/09/19 09:31 withdrawal symptom Plan: continue detox methadone and ativan regimen,ensure plus for diet supplement
[2019-05-09] MEDS ORDERED: NICOTINE 21 MG/24 HOURS TOPICAL PATCH TD SCH (10:00)
[2019-05-09] MEDS ORDERED: METHADONE (DETOX) 20 MG, METHADONE (DETOX) 5 MG PO ONE (10:00)
[2019-05-09] MEDS: PRENATAL VITAMINS W/ FOLIC ACID TABLET (FP) PO SCH (10:01)
[2019-05-09] MEDS ORDERED: METHADONE (DETOX) 10 MG, METHADONE (DETOX) 5 MG PO ONE (10:13)
[2019-05-09 10:14] LABS: HEMATOCRIT 45.2 % (35.4-49); HEMOGLOBIN 15.2 GM/dL (11.7-16.9); MCH 30.1 pg (25.7-33.7); MCHC 33.7 g/dl (32.0-35.9); MEAN CELL VOLUME 89.1 fl (80-96); MEAN PLT VOLUME 8.6 fl (7.5-11.1); PLATELET COUNT 305 K/MM3 (134-434); RBC 5.07 M/mm3 (4.00-5.60); RDW 13.4 % (11.9-15.9); WHITE BLOOD COUNT 9.2 K/mm3 (4.0-10.0)
--- NOTE | 2019-05-09 10:18 | PN ---
[facility] Progress Note Note: less withdrawal symptom ,methadone adjusted
[2019-05-09 10:20] LABS: ALBUMIN 4.3 g/dl (3.4-5.0); BLOOD UREA NITROGEN 8.8 mg/dL (7-18); CALCIUM 9.7 mg/dL (8.5-10.1); CREATININE 1.1 mg/dL (0.55-1.3); TOT PROT 7.4 g/dl (6.4-8.2)
[2019-05-09] MEDS: LORazepam 1 MG TABLET PO PRN (20:09)
[2019-05-09] MEDS: cloNIDine HCL 0.1 MG TABLET PO PRN (20:09)
[2019-05-09] MEDS ORDERED: MIRTAZAPINE 30 MG TABLET (FP) PO SCH (22:00)
[2019-05-09] MEDS: THIAMINE HCL 100 MG TABLET (FP) PO SCH (22:06)
[2019-05-10] MEDS ORDERED: LORazepam 1 MG TABLET PO SCH (05:00)
[2019-05-10] MEDS: PRENATAL VITAMINS W/ FOLIC ACID TABLET (FP) PO SCH (09:02)
--- NOTE | 2019-05-10 09:15 | PN ---
[facility] CIWA - CIWA Score Nausea/Vomitin-No Nausea/No Vomiting Muscle Tremors: 1-None Visible, but [place] Anxiety: 1-Mildly Anxious Agitation: 0-Normal Activity Paroxysmal Sweats: No Perspiration Orientation: 0-Oriented Tacttile Disturbances: 0-None Auditory Disturbances: 0-None Visual Disturbances: 0-None Headache: 0-None Present CIWA-Ar Total Score: 2 S COWS - Scale Resting Pulse: 0= [place] 80 or Below Sweatin= Chills/Flushing Restless Observation: 1= Difficult to Sit Still Pupil Size: 0= Normal to Room Light Bone or Joint Aches: 0= None Runny Nose/ Eye Tearin= None GI Upset > 30mins: 0= None Tremor Observation of Outstretched Hands: 0= None Yawning Observation: 0= None Anxiety or Irritability: 0= None Goose Flesh Skin: 0=Smooth Skin COWS Score: 2 S Progress Note (SOAP) Subjective: feeling much better anxiety Objective: 05/10/19 09:20 Vital Signs Temperature 97.3 F L 05/10/19 06:50 Pulse Rate 98 H 05/10/19 06:50 Respiratory Rate 18 05/10/19 06:50 Blood Pressure 132/55 L 05/10/19 06:50 O2 Sat by Pulse Oximetry (%) aaox3 ambulating no acute distress Assessment: 05/10/19 09:21 mild withdrawals Plan: complete detox d/c after his last dose today print out of [facility] near his home provided to patient as per pt request
--- NOTE | 2019-05-10 09:23 | PN ---
[facility] Progress Note Note: Patient is discharged today. Script for 30 days supply of Remeron 30 mg/hs is electronically transmitted to [facility] at [address], [place] [address]
--- NOTE | 2019-05-10 09:27 | DS ---
[facility] Detox Discharge Summary Admission Date: 05/08/19 Discharge Date: 05/10/19 - History Present History: Alcohol Dependence, Cannabis Dependence, Opioid Dependence - Physical Exam Results Vital Signs: Vital Signs Temperature 97.3 F L 05/10/19 06:50 Pulse Rate 98 H 05/10/19 06:50 Respiratory Rate 18 05/10/19 06:50 Blood Pressure 132/55 L 05/10/19 06:50 O2 Sat by Pulse Oximetry (%) Pertinent Admission Physical Exam Findings: pt arrived in withdrawals Vital Signs Temperature 97.3 F L 05/10/19 06:50 Pulse Rate 98 H 05/10/19 06:50 Respiratory Rate 18 05/10/19 06:50 Blood Pressure 132/55 L 05/10/19 06:50 O2 Sat by Pulse Oximetry (%) aaox3 ambulating no acute distress - Treatment Hospital Course: Detox Protocol Followed, Detoxed Safely, Responded well, Discharged Condition Good, Rehab Referral Accepted Patient has Accepted a Rehab Referral to: pt decline rehab; referral provided - Medication Discharge Medications: Ambulatory Orders Mirtazapine [Remeron -] 30 mg PO HS #30 tablet 05/10/19 - Diagnosis (1) Nicotine dependence Current Visit: Yes Status: Chronic Qualifiers: Nicotine product type: cigarettes Substance use status: uncomplicated Qualified Code(s): F17.210 - Nicotine dependence, cigarettes, uncomplicated (2) Alcohol dependence with withdrawal, uncomplicated Current Visit: Yes Status: Chronic (3) Anxiety Current Visit: No Status: Acute (4) Cannabis dependence Current Visit: Yes Status: Acute (5) Depressed affect Current Visit: No Status: Acute (6) Opioid dependence with withdrawal Current Visit: Yes Status: Chronic (7) Substance induced mood disorder Current Visit: No Status: Acute (8) Substance-induced sleep disorder Current Visit: No Status: Acute - AMA Did Patient Leave Against Medical Advice: No
[2019-05-10 09:30] VITALS: BP 136/79; PULSE 93; TEMP 96.4
[2019-05-10] MEDS ORDERED: METHADONE HCL 10 MG TABLET (FOR DETOX USE ONLY) PO ONE ×2 (10:00)
[2019-05-11] MEDS ORDERED: LORazepam 0.5 MG TABLET PO PRN
[2019-05-11] MEDS ORDERED: LORazepam 0.5 MG TABLET PO SCH (05:00)
[2019-05-11] MEDS ORDERED: METHADONE HCL 5 MG TABLET (FOR DETOX USE ONLY) PO ONE (06:00)
[2019-05-11] MEDS ORDERED: METHADONE (DETOX) 10 MG, METHADONE (DETOX) 5 MG PO ONE (10:00)
[2019-05-12] MEDS ORDERED: LORazepam 0.5 MG TABLET PO ONE (05:00)
[2019-05-12] MEDS ORDERED: METHADONE HCL 10 MG TABLET (FOR DETOX USE ONLY) PO ONE (10:00)
[2019-05-13] MEDS ORDERED: METHADONE HCL 5 MG TABLET (FOR DETOX USE ONLY) PO ONE (06:00)
== END 2019-05-10 09:45 | disposition home or self-care (01) | DRG 773 ==
LOC: YASAS 13:04 → Y6N 15:54
PROVIDERS: ADMIT Allergy & Immunology; ATTEND Allergy & Immunology
PROC: HZ2ZZZZ Detoxification Services for Substance Abuse Treatment (ICD-10-PCS; principal; 2019-05-08)
DX: F10.230 Alcohol dependence with withdrawal, uncomplicated (principal); F11.23 Opioid dependence with withdrawal; F12.20 Cannabis dependence, uncomplicated; F17.210 Nicotine dependence, cigarettes, uncomplicated; F19.282 Other psychoactive substance dependence with psychoactive substance-induced sleep disorder; F19.24 Other psychoactive substance dependence with psychoactive substance-induced mood disorder; F41.9 Anxiety disorder, unspecified; R45.89 Other symptoms and signs involving emotional state; Z87.442 Personal history of urinary calculi; Z91.5 Personal history of self-harm
CPT/HCPCS: 36415; 80053; 85027; 86593; J0735